=== PATIENT | male | born 1965 | race Caucasian/White ===

== ENCOUNTER → 2016-11-24 | Outpatient (REF) | LOC: M CARPUL 06:58 | PROVIDERS: ATTEND Nurse Practitioner Adult Health | DX: Z00.00 Encounter for general adult medical examination without abnormal findings (principal) ==

== ENCOUNTER → 2016-12-14 | Outpatient (REF) | payer BC | LOC: M LAB REF 13:00 | PROVIDERS: ATTEND Nurse Practitioner Adult Health | DX: M65.052 Abscess of tendon sheath, left thigh (principal) ==

== ENCOUNTER 2017-09-12 07:50 | Emergency (ER) | payer OTHER, BC ==
[~2017-09-12] VITALS: Ht 172.7 cm; Wt 95.0 kg
[2017-09-12] MEDS ORDERED: CLOP75TA2 (08:01)
[2017-09-12] MEDS ORDERED: CARV6.25 (08:01)
[2017-09-12] MEDS ORDERED: ASPI1CHW2 (08:01)
[2017-09-12] MEDS ORDERED: VALS1TAB48 (08:01)
[2017-09-12] MEDS ORDERED: ATOR80TA59 (08:01)
[2017-09-12] MEDS ORDERED: AMLO5TAB2 (08:01)
[2017-09-12] MEDS ORDERED: SPIR25TA2 (08:01)
[2017-09-12] MEDS ORDERED: CYCL10TA PO (09:37)
--- NOTE | 2017-09-12 09:37 | REP ---
RIGHT SHOULDER SERIES: Three views of the right shoulder are performed. No acute fracture or dislocation is seen. There is mild joint space narrowing and spurring at the acromioclavicular joint. IMPRESSION: Mild degenerative changes. No fracture or dislocation. Signed by Gio Mckeon MD 09/14/2017 08:53 A
[2017-09-12 09:40] VITALS: BP 128/79
== END 2017-09-12 09:42 | disposition home or self-care (01) ==
LOC: M ED 07:50
DX: S43.401A Unspecified sprain of right shoulder joint, initial encounter (principal); W01.198A Fall on same level from slipping, tripping and stumbling with subsequent striking against other object, initial encounter; Y92.59 Other trade areas as the place of occurrence of the external cause; Y93.89 Activity, other specified; Y99.0 Civilian activity done for income or pay; I10 Essential (primary) hypertension; Z87.891 Personal history of nicotine dependence; Z79.899 Other long term (current) drug therapy; Z79.82 Long term (current) use of aspirin; I25.2 Old myocardial infarction; Z95.5 Presence of coronary angioplasty implant and graft

== ENCOUNTER → 2017-11-09 | Outpatient (REF) | LOC: M CARPUL 07:40 | DX: Z00.00 Encounter for general adult medical examination without abnormal findings (principal) ==

== ENCOUNTER 2017-11-28 06:58 | Outpatient (RCR) | payer OTHER, BC | END 2017-11-30 | LOC: M PT 06:58 | DX: Z51.89 Encounter for other specified aftercare (principal); M75.41 Impingement syndrome of right shoulder ==

== ENCOUNTER 2017-12-01 07:41 | Outpatient (RCR) | payer OTHER | END 2017-12-31 | LOC: M PT 12-05 08:27 | DX: Z51.89 Encounter for other specified aftercare (principal); M75.41 Impingement syndrome of right shoulder ==

== ENCOUNTER → 2018-07-03 | Outpatient (CLI) | payer OTHER ==
[2018-07-03 10:45] LABS: ALBUMIN 3.6 GM/DL (3.2-5.2); ANION GAP 8 MEQ/L (8-16); BLOOD UREA NITROGEN 28 MG/DL (7-18); CALCIUM LEVEL 9.2 MG/DL (8.5-10.1); CARBON DIOXIDE LEVEL 27 MEQ/L (21-32); CHLORIDE LEVEL 106 MEQ/L (98-107); CREATININE FOR GFR 1.35 MG/DL (0.70-1.30); GLOMERULAR FILTRATION RATE 58.4 (>56); GLUCOSE, FASTING 113 MG/DL (70-100); PHOSPHORUS LEVEL 3.1 MG/DL (2.5-4.9); POTASSIUM SERUM 3.4 MEQ/L (3.5-5.1); SODIUM LEVEL 141 MEQ/L (136-145)
== END ==
LOC: M LAB 09:33
DX: I11.9 Hypertensive heart disease without heart failure (principal)

== ENCOUNTER → 2018-08-03 | Outpatient (CLI) | payer BC ==
[2018-08-03 13:53] LABS: ALBUMIN 3.5 GM/DL (3.2-5.2); ANION GAP 10 MEQ/L (8-16); BLOOD UREA NITROGEN 27 MG/DL (7-18); CALCIUM LEVEL 9.1 MG/DL (8.5-10.1); CARBON DIOXIDE LEVEL 26 MEQ/L (21-32); CHLORIDE LEVEL 105 MEQ/L (98-107); GLUCOSE, FASTING 90 MG/DL (70-100); PHOSPHORUS LEVEL 3.2 MG/DL (2.5-4.9); POTASSIUM SERUM 3.9 MEQ/L (3.5-5.1); SODIUM LEVEL 141 MEQ/L (136-145)
== END ==
LOC: M LAB 12:31
DX: I11.9 Hypertensive heart disease without heart failure (principal)
CPT/HCPCS: 80069

== ENCOUNTER → 2018-12-04 | Outpatient (REF) ==
[~2018-12-04] MED LIST: AMLO5TAB6; ASPI1CHW2; ATOR80TA59; CARV6.25; CLOP75TA2; CYCL10TA PO; SPIR-10; VALS1TAB48
--- NOTE | 2018-12-04 13:56 | PFTRPT ---
Height: 68.00 Inches Weight: 213.00 Lbs BSA: 2.10 Diagnosis: [employer] DATE OF PROCEDURE: 12/04/2018 ORDERED BY: Aminata Naidu Spirometry: Study of excellent technical quality. Forced vital capacity normal. FEV1 in proportion. Obstructive index is, therefore, normal. Flow Volume Loop: Expiratory limb of the flow volume loop is normal. Lung Volumes: Total lung capacity normal. Residual volume in proportion. Diffusing Capacity: Diffusing capacity, although mildly reduced, is appropriate for alveolar volume. Hemoglobin: No hemoglobin available for correction. Airway Mechanics: Airway resistance and conductance are normal. IMPRESSION: Mild diffusing capacity impairment. MTDD
== END ==
LOC: M CARPUL 07:53 → EDSTATUS 08:00
PROVIDERS: ATTEND Nurse Practitioner Adult Health
DX: Z02.89 Encounter for other administrative examinations (principal)

== ENCOUNTER → 2018-12-21 | Outpatient (CLI) | payer BC ==
[~2018-12-21] MED LIST changes: +CHLO125TA; +LOSA100T50; +POTA10CA32
--- NOTE | 2018-12-21 13:58 | REP ---
BILATERAL MAMMOGRAM WITH 3D TOMOSYNTHESIS AND BILATERAL BREAST ULTRASOUND: Bilateral mammography performed in the MLO and CC projections with 3D tomosynthesis. There is a history of left breast pain in the retroareolar region for 2-3 weeks. Breast parenchyma is predominantly fatty, with mild ill-defined fibroglandular tissue in the left retroareolar region. No suspicious mass is seen mammographically and no suspicious clusters of microcalcifications. No significant fibroglandular tissue is seen on the right. Real-time sonographic evaluation of the left retroareolar region is performed in the region of pain. There is hypoechoic tissue at the location measuring 1.3 x 1.2 x 0.7 cm with a typical appearance for gynecomastia. IMPRESSION: BIRADS 2: BI-RADS/ACR category 2 mammogram. Benign Findings. Mild asymmetric left gynecomastia in the retroareolar region. No suspicious findings. Clinical correlation and followup recommended. The patient letter being requested is M2. This mammogram was interpreted with the aid of an FDA-approved computer-aided detection system. The patient states he/she had a clinical breast exam in 12/2018. Electronically Signed by Gio Mckeon MD 12/21/2018 04:07 P
== END ==
LOC: M RAD 11:30
PROVIDERS: ATTEND Nurse Practitioner Family
DX: N64.4 Mastodynia (principal)
CPT/HCPCS: 76642; 77066; G0279

== ENCOUNTER 2018-12-22 08:44 | Emergency (ER) | payer BC ==
[~2018-12-22] VITALS: Ht 172.7 cm; Wt 95.9 kg
[~2018-12-22 08:44] MED LIST changes: -CHLO125TA; -LOSA100T50; -POTA10CA32
[2018-12-22] MEDS ORDERED: POTA10CA32 (09:03)
[2018-12-22] MEDS ORDERED: CHLO125TA (09:03)
[2018-12-22] MEDS ORDERED: LOSA100T50 (09:04)
[2018-12-22] MEDS ORDERED: ASPIRIN 81 MG CHEW TABLET PO ONE (09:30)
[2018-12-22 09:32] LABS: BASO # 0.1 10^3/uL (0.0-0.2); BASO % 0.8 % (0.0-1.0); EOS # 0.2 10^3/uL (0.0-0.50); EOS % 2.7 % (0.0-3.0); HEMATOCRIT 40.9 % (42.0-52.0); HEMOGLOBIN 14.4 g/dl (13.5-17.5); LYMPH # 2.2 10^3/uL (1.5-4.5); LYMPH % 30.1 % (24.0-44.0); MEAN CORPUSCULAR HEMOGLOBIN 31.2 pg (27.0-33.0); MEAN CORPUSCULAR HGB CONC 35.2 g/dl (32.0-36.5); MEAN CORPUSCULAR VOLUME 88.5 fl (80.0-96.0); MONO # 0.9 10^3/uL (0.0-0.8); MONO % 11.6 % (0.0-5.0); NEUTROPHILS % 54.3 % (36.0-66.0); PLATELET COUNT, AUTOMATED 205 10^3/uL (150-450); RED BLOOD COUNT 4.62 10^6/uL (4.30-6.10); WHITE BLOOD COUNT 7.3 10^3/uL (4.0-10.0)
[2018-12-22 09:42] LABS: PARTIAL THROMBOPLASTIN TIME 30.5 SECONDS (25.4-37.6); PROTHROMBIN TIME 13.3 SECONDS (12.1-14.4)
--- NOTE | 2018-12-22 09:56 | REP ---
CHEST X-RAY: TWO VIEWS. HISTORY: Chest pain. COMPARISON STUDY: May 29, 2013 FINDINGS: EKG monitoring electrodes overlie the chest. The lungs are well inflated and free of infiltrate. Minimal linear fibrosis is seen at the right base. Heart size is normal. Pulmonary vasculature is not increased. No bony abnormalities appreciated. IMPRESSION: No acute disease. Electronically Signed by Kieran Mirza MD 12/22/2018 01:57 P
[2018-12-22 10:05] LABS: ALBUMIN 3.5 GM/DL (3.2-5.2); ALT/SGPT 44 U/L (12-78); BILIRUBIN,DIRECT 0.2 MG/DL (0.0-0.2); BILIRUBIN,TOTAL 0.7 MG/DL (0.2-1.0); BLOOD UREA NITROGEN 26 MG/DL (7-18); CALCIUM LEVEL 9.1 MG/DL (8.5-10.1); CARBON DIOXIDE LEVEL 27 MEQ/L (21-32); CHLORIDE LEVEL 105 MEQ/L (98-107); CPK CREATINE PHOSPHOKINASE 383 U/L (39-308); CREATININE FOR GFR 1.47 MG/DL (0.70-1.30); FREE T4 1.01 NG/DL (0.76-1.46); GLOMERULAR FILTRATION RATE 52.9 (>56); GLUCOSE, FASTING 103 MG/DL (70-100); LIPASE 172 U/L (73-393); MB/CK RELATIVE INDEX 0.94 (< OR =4); POTASSIUM SERUM 3.6 MEQ/L (3.5-5.1); SODIUM LEVEL 139 MEQ/L (136-145); TOTAL PROTEIN 7.1 GM/DL (6.4-8.2); TROPONIN I < 0.02 NG/ML (< 0.10)
[2018-12-22] MEDS ORDERED: NITROGLYCERIN 0.4 MG SUBL TABLET SL PRN (10:45)
[2018-12-22 15:51] LABS: CPK CREATINE PHOSPHOKINASE 351 U/L (39-308); MB/CK RELATIVE INDEX 0.91 (< OR =4); TROPONIN I < 0.02 NG/ML (< 0.10)
[2018-12-22 16:30] VITALS: BP 118/65
--- NOTE | 2018-12-23 07:02 | ECGEPIP ---
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
--- NOTE | 2018-12-23 07:12 | ECGEPIP ---
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
== END 2018-12-22 16:31 | disposition home or self-care (01) ==
LOC: M ED 08:44
DX: R07.9 Chest pain, unspecified (principal); I25.2 Old myocardial infarction; I10 Essential (primary) hypertension; Z95.5 Presence of coronary angioplasty implant and graft; Z87.891 Personal history of nicotine dependence; Z79.899 Other long term (current) drug therapy

== ENCOUNTER 2019-10-17 13:57 | Emergency (ER) | payer OTHER, BC ==
[~2019-10-17] VITALS: Ht 172.7 cm; Wt 96.4 kg
[~2019-10-17 13:57] MED LIST changes: +CHLO125TA; +LOSA100T50; +POTA10CA32; -VALS1TAB48; +VALS1TAB68
[2019-10-17] MEDS ORDERED: TADA10TA (14:10)
[2019-10-17] MEDS ORDERED: CHLO125TA PO (14:10)
--- NOTE | 2019-10-17 15:20 | REP ---
LEFT 5TH DIGIT. FOUR VIEWS: Four views left 5th digit performed. No acute fracture or dislocation is seen. There is soft tissue swelling of the distal aspect of the digit. IMPRESSION: No acute fracture or dislocation. Electronically Signed by Gio Mckeon MD 10/17/2019 05:40 P
[2019-10-17] MEDS ORDERED: ACETAMINOPHEN 325 MG TAB PO ONE (15:30)
[2019-10-17] MEDS ORDERED: CEPHALEXIN 500 MG CAP PO ONE (15:30)
[2019-10-17] MEDS ORDERED: LIDOCAINE 2% MDV 20 ML VIAL SC ONE (15:30)
[2019-10-17 16:21] VITALS: BP 140/75
[2019-10-17] MEDS ORDERED: KEFL500C17 PO (16:22)
== END 2019-10-17 16:29 | disposition home or self-care (01) ==
LOC: M ED 13:57
DX: S61.217A Laceration without foreign body of left little finger without damage to nail, initial encounter (principal); W31.9XXA Contact with unspecified machinery, initial encounter; Y92.89 Other specified places as the place of occurrence of the external cause; Y99.0 Civilian activity done for income or pay; I11.9 Hypertensive heart disease without heart failure; I25.2 Old myocardial infarction; Z87.891 Personal history of nicotine dependence; Z79.899 Other long term (current) drug therapy; Z79.02 Long term (current) use of antithrombotics/antiplatelets; Z79.82 Long term (current) use of aspirin

== ENCOUNTER 2019-10-24 09:37 | Emergency (ER) | payer OTHER, BC ==
[~2019-10-24] VITALS: Ht 172.7 cm; Wt 96.5 kg
[~2019-10-24 09:37] MED LIST changes: +CHLO125TA PO; +KEFL500C17 PO; +TADA10TA
[2019-10-24 09:38] VITALS: BP 131/66
[2019-10-24] MEDS ORDERED: CEPH500C (09:45)
== END 2019-10-24 10:45 | disposition home or self-care (01) ==
LOC: M ED 09:37
DX: Z48.02 Encounter for removal of sutures (principal)

== ENCOUNTER → 2019-10-29 | Outpatient (REF) ==
[~2019-10-29] MED LIST changes: +CEPH500C
--- NOTE | 2019-10-29 11:34 | PFTRPT ---
Site: [facility], [address] [place] [address], [id number] ID: [id number] Name: BHARGAVI STALLWORTH Visit Date: 10/29/2019 Second ID: [id number] Referring Doctor: Aminata Naidu Reviewing Doctor: Kurt Ma MD Transfer Driver: Aubrey RÍOS RRT Age: 54 : 1965 Sex: Male Race: Height: 68.00 Inches Weight: 209.00 Lbs BSA: 2.08 Order IDs: [id number] Requested Test(s): <RESP-PFT.DLCO> Diagnosis: [employer] SCREENING test meet the ATS standards for acceptability and repeatability. Review Status: Not Reviewed Pre-Bronch Post-Bronch Pred Actual %Pred Actual %Chng SPIROMETRY FVC (L) 4.54 4.58 100 FEV1 (L) 3.47 3.69 106 FEV1/FVC (%) 76 81 106 FEF 25% (L/sec) 7.62 7.15 93 FEF 50% (L/sec) 4.91 5.07 103 FEF 75% (L/sec) 1.53 1.46 95 FEF 25-75% (L/sec) 2.96 3.56 120 FEF Max (L/sec) 9.01 8.79 97 FIVC (L) 4.18 FIF 50% (L/sec) 4.81 8.90 184 FIF Max (L/sec) 8.93 MVV (L/min) 138 151 109 Expiratory Time (sec) 6.30 Back Extrap Vol (L) 0.11 Time To FEFmax (sec) 0.082 LUNG VOLUMES SVC (L) 4.52 4.63 102 IC (L) 3.21 4.04 125 ERV (L) 1.31 0.59 45 TGV (L) 3.37 3.09 91 RV (Pleth) (L) 2.06 2.50 121 TLC (Pleth) (L) 6.58 7.13 108 RV/TLC (Pleth) (%) 32 35 109 DIFFUSION DLCOunc (ml/min/mmHg) 28.38 19.46 68 DL/VA (ml/min/mmHg/L) 4.31 3.05 70 VA (L) 6.58 6.38 97 BHT (sec) 9.53 IVC (L) 4.24 TLC (SB) (L) 6.53 AIRWAYS RESISTANCE Raw (cmH2O/L/s) 1.45 0.87 60 Gaw (L/s/cmH2O) 1.03 1.16 112 sRaw (cmH2O*s) 4.76 3.24 68 sGaw (1/cmH2O*s) 0.20 0.31 155
== END ==
LOC: EDSTATUS 11:00 → M CARPUL 11:00
PROVIDERS: ATTEND Nurse Practitioner Adult Health
DX: Z00.00 Encounter for general adult medical examination without abnormal findings (principal)

== ENCOUNTER → 2020-04-07 | Outpatient (CLI) | payer BC ==
[~2020-04-07] MED LIST changes: +CYCL-707 PO; -CYCL10TA PO
[2020-04-07 07:33] LABS: CALCIUM LEVEL 9.5 MG/DL (8.5-10.1); CREATININE FOR GFR 1.53 MG/DL (0.70-1.30); GLOMERULAR FILTRATION RATE 50.2 (>56); POTASSIUM SERUM 3.6 MEQ/L (3.5-5.1)
== END ==
LOC: M LAB 06:46
PROVIDERS: ATTEND Physician Assistant
DX: I25.119 Atherosclerotic heart disease of native coronary artery with unspecified angina pectoris (principal)

== ENCOUNTER → 2020-04-21 | Outpatient (CLI) | payer BC ==
[~2020-04-21] MED LIST changes: +AMLO1TAB24; -AMLO5TAB6
[2020-04-21 07:48] LABS: CREATININE FOR GFR 1.47 MG/DL (0.70-1.30); GLOMERULAR FILTRATION RATE 52.6 (>56); POTASSIUM SERUM 3.5 MEQ/L (3.5-5.1)
== END ==
LOC: M LAB 07:02
PROVIDERS: ATTEND Physician Assistant
DX: I11.9 Hypertensive heart disease without heart failure (principal)

== ENCOUNTER → 2020-05-06 | Outpatient (CLI) | payer BC ==
[2020-07-22 10:26] LABS: GLUCOSE, FASTING SEE SEPARATE REPORT
== END ==
LOC: M LAB 06:54
PROVIDERS: ATTEND Physician Assistant
DX: I11.9 Hypertensive heart disease without heart failure (principal)

== ENCOUNTER → 2020-12-10 | Outpatient (REF) ==
--- NOTE | 2020-12-10 10:14 | PFTRPT ---
Height: 68.00 Inches Weight: 212.00 Lbs BSA: 2.10 Diagnosis: [employer] DATE: 12/10/2020 ORDERING PHYSICIAN: Aminata Naidu NP Studies have excellent technical quality. Forced vital capacity is normal. FEV1 is in proportion. Obstructive index is therefore normal. Expiratory limit of the flow-volume loop is normal. Total lung capacity is normal. Residual volume is in proportion. Diffusing capacity although minimally reduced is appropriate for alveolar volume. No hemoglobin available for correction. Airway resistance and conductance are normal. IMPRESSION: Minimal decline in the absolute diffusing capacity. Please correlate clinically. MTDD
== END ==
LOC: M CARPUL 08:56 → EDSTATUS 09:00
PROVIDERS: ATTEND Nurse Practitioner Adult Health
DX: Z00.00 Encounter for general adult medical examination without abnormal findings (principal)

== ENCOUNTER → 2021-11-11 | Outpatient (CLI) | payer BC ==
[~2021-11-11] MED LIST changes: +LOSA100T45; -LOSA100T50
== END ==
LOC: M CARPUL 09:51
PROVIDERS: ATTEND Nurse Practitioner Adult Health
DX: Z13.9 Encounter for screening, unspecified (principal)

== ENCOUNTER → 2022-11-09 | Outpatient (REF) ==
[~2022-11-09] MED LIST changes: -POTA10CA32; +POTA10CA33
== END ==
LOC: M RAD 10:19
PROVIDERS: ATTEND Nurse Practitioner Adult Health
DX: Z20.822 Contact with and (suspected) exposure to COVID-19 (principal)

== ENCOUNTER → 2022-12-06 | Outpatient (REF) | payer BC | LOC: M CARPUL 08:49 → EDSTATUS 09:00 | PROVIDERS: ATTEND Nurse Practitioner Adult Health | DX: Z02.1 Encounter for pre-employment examination (principal) ==

== ENCOUNTER 2022-12-10 13:27 | Emergency (ER) | payer OTHER, BC ==
[~2022-12-10] VITALS: Ht 172.7 cm; Wt 89.6 kg
[2022-12-10 13:27] VITALS: BP 137/67
[2022-12-10] MEDS ORDERED: EZET10TA21 (13:34)
[2022-12-10] MEDS ORDERED: FLUORESCEIN OPHTH 1MG STRIP OU ONE (14:20)
[2022-12-10] MEDS ORDERED: PROPARACAINE 0.5% OPHTH SOL 15ML OU ONE (14:20)
[2022-12-10] MEDS ORDERED: CIPROFLOXACIN 0.3% OPHTH SOLN 2.5ML OD ONE (15:00)
[2022-12-10] MEDS ORDERED: CIPR0.3S6 OS (15:07)
== END 2022-12-10 15:15 | disposition home or self-care (01) ==
LOC: M ED 13:27
DX: T15.02XA Foreign body in cornea, left eye, initial encounter (principal); Y92.238 Other place in hospital as the place of occurrence of the external cause; Y99.0 Civilian activity done for income or pay; I10 Essential (primary) hypertension; E78.5 Hyperlipidemia, unspecified; I25.2 Old myocardial infarction; Z79.899 Other long term (current) drug therapy; Z79.02 Long term (current) use of antithrombotics/antiplatelets; Z79.82 Long term (current) use of aspirin

== ENCOUNTER → 2023-12-05 | Outpatient (REF) ==
[~2023-12-05] MED LIST changes: +CIPR0.3S37 OS; +EZET10TA21; -LOSA100T45; +LOSA100T46; -POTA10CA33; +POTA10CA60
== END ==
LOC: M CARPUL 14:58
PROVIDERS: ATTEND Nurse Practitioner Adult Health
DX: Z00.00 Encounter for general adult medical examination without abnormal findings (principal)

== ENCOUNTER 2025-01-10 06:22 | Day surgery (SDC) | payer BC ==
[~2025-01-10] VITALS: Ht 172.7 cm; Wt 96.0 kg
[~2025-01-10 06:22] MED LIST changes: -ASPI1CHW2; +ASPI1CHW2 PO; -ATOR80TA59; +ATOR80TA59 PO; +CARV12.5 PO; -EZET10TA21; +EZET10TA21 PO; +LOSA50TA28 PO; -POTA10CA60; +POTA10CA70; +SPIR-10 PO
[2025-01-10] MEDS ORDERED: propofoL 200 MG/20 ML VIAL As Ordered ONE (07:02)
[2025-01-10] MEDS ORDERED: MIDAZOLAM INJ 2MG/2ML VIAL As Ordered ONE (07:02)
[2025-01-10] MEDS ORDERED: LIDOCAINE 2% 100MG/5ML SDV (FOR ANES.) As Ordered ONE (07:02)
[2025-01-10] MEDS ORDERED: KETOROLAC 30 MG/ML 1ML VIAL As Ordered ONE (07:02)
[2025-01-10] MEDS ORDERED: fentaNYL 100 MCG/2 ML INJECTION As Ordered ONE (07:02)
[2025-01-10] MEDS ORDERED: ONDANSETRON 4MG 2ML VIAL As Ordered ONE (07:02)
[2025-01-10] MEDS ORDERED: ACETAMINOPHEN 1000MG/100ML IV BAG As Ordered ONE (07:04)
[2025-01-10] MEDS ORDERED: LR 1,000 ML IV SCH ×2 (07:55→08:55)
[2025-01-10] MEDS ORDERED: ePHEDrine SULFATE 25 MG/5 ML(5MG/ML) SYRINGE As Ordered ONE (08:41)
[2025-01-10] MEDS: CIPRODEX OTIC SUSP 7.5ML As Ordered ONE (08:45)
[2025-01-10] MEDS: OXYMETAZOLINE 0.05% NASAL SPRAY As Ordered ONE (08:51)
[2025-01-10] MEDS ORDERED: fentaNYL 100 MCG/2 ML INJECTION IV PRN (08:55)
[2025-01-10] MEDS ORDERED: ONDANSETRON 4MG 2ML VIAL IV PRN (08:55)
[2025-01-10 09:40] VITALS: BP 141/88; TEMP 96; O2SAT 96
[2025-01-10] MEDS ORDERED: LABETALOL 100MG/20ML VIAL As Ordered ONE (09:59)
== END 2025-01-10 10:01 | disposition home or self-care (01) ==
LOC: M SDC 06:22
PROVIDERS: ATTEND Otolaryngology
DX: H69.82 Other specified disorders of Eustachian tube, left ear (principal); H65.22 Chronic serous otitis media, left ear; I25.10 Atherosclerotic heart disease of native coronary artery without angina pectoris; I10 Essential (primary) hypertension; E78.00 Pure hypercholesterolemia, unspecified; R06.83 Snoring; Z79.899 Other long term (current) drug therapy; Z79.82 Long term (current) use of aspirin; I25.2 Old myocardial infarction; Z95.5 Presence of coronary angioplasty implant and graft; Z89.612 Acquired absence of left leg above knee
CPT/HCPCS: 69436; J0131; J1100; J1885; J2250; J2405; J3010

== ENCOUNTER → 2025-05-10 | Outpatient (CLI) | payer BC | LOC: M RAD 11:23 | PROVIDERS: ATTEND Nurse Practitioner Family | DX: M77.01 Medial epicondylitis, right elbow (principal) ==

== ENCOUNTER 2025-08-13 07:16 | Day surgery (SDC) | payer BC ==
[~2025-08-13] VITALS: Ht 172.7 cm; Wt 94.8 kg
[~2025-08-13 07:16] MED LIST changes: -EZET10TA21 PO; +EZET10TA57 PO
[2025-08-13 09:44] VITALS: BP 143/85; O2SAT 96
== END 2025-08-13 09:49 | disposition home or self-care (01) ==
LOC: M OPP 07:16
PROVIDERS: ATTEND Surgery
DX: Z12.11 Encounter for screening for malignant neoplasm of colon (principal); K57.30 Diverticulosis of large intestine without perforation or abscess without bleeding; Z86.73 Personal history of transient ischemic attack (TIA), and cerebral infarction without residual deficits; Z95.5 Presence of coronary angioplasty implant and graft; Z79.82 Long term (current) use of aspirin; Z79.899 Other long term (current) drug therapy